=== PATIENT | male | born 1990 | race Caucasian/White ===

== ENCOUNTER 2020-12-16 19:56 | Emergency (ER) | payer SELFPAY ==
[~2020-12-16] VITALS: Ht 175 cm; Wt 68.0 kg
[~2020-12-16 19:56] MED LIST: ALPR1T PO; AMIT100T2 PO; CEPH-507 PO; CYCL-97 PO; CYCL10TA9 PO; IBP800T PO; NAPR-243 PO; PENI500T PO; PERM60CR10 TOP; PRD20T PO; QTP200T; RISP4TAB34 PO; ROPI1TAB PO; SULF1TAB38 PO; TRAZ150T42 PO; TRM50T PO; TRZ100T PO
[2020-12-16] MEDS ORDERED: HYDROcodone/APAP 5 MG/325 MG (LORTAB) TAB PO ONE (20:45)
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
[2020-12-16 22:21] VITALS: BP 108/79
--- NOTE | 2020-12-17 06:55 | Diagnostic Imaging Report ---
PROCEDURE: US Scrotum. TECHNIQUE: Multiple real-time grayscale images were obtained over the scrotum in various projections bilaterally. INDICATION: Scrotal pain, injury. FINDINGS: Testicular parenchyma appeared normal. There are no findings of testicular rupture or testicular fracture. There is normal color Doppler blood flow. No features of orchitis or epididymitis. No torsion. No hernia or suspicious varicocele. IMPRESSION: 1. This is a normal scrotal Doppler and ultrasound exam showing intact testicles with no hemorrhage, vascular abnormality or other acute pathology. Dictated by: Dictated on workstation # [id number]
== END 2020-12-16 22:21 | disposition home or self-care (01) ==
LOC: EDUNIT# 19:56 → ER 19:57
DX: S30.22XA Contusion of scrotum and testes, initial encounter (principal); F17.290 Nicotine dependence, other tobacco product, uncomplicated; Y04.0XXA Assault by unarmed brawl or fight, initial encounter
CPT/HCPCS: 76870